=== PATIENT | male | born 1945 | race Two or more races ===

== ENCOUNTER 2019-05-14 10:48 | Observation (INO) | payer MEDICARE ==
--- NOTE | 2019-05-12 15:10 | Diagnostic Imaging Report ---
Frontal and lateral views of the chest. HISTORY: PREOP, L4 surgery COMPARISON: None available. DISCUSSION: Lungs: The lungs are well inflated. No evidence of a consolidative pneumonia or pulmonary alveolar edema. Pleura: No pleural effusion or pneumothorax. Heart and mediastinum: The cardiomediastinal silhouette appears unremarkable. Bones and soft tissues: DISH (Diffuse idiopathic skeletal hyperostosis). IMPRESSION: No acute radiographic abnormality. Signed by: Dr. Ajay Littlejohn D.O., M.M.M. on 05/12/2019 3:06 PM
[2019-05-12 15:21] LABS: BASOPHILS % 0.4 % (0.0-1.0); EOSINOPHILS # (AUTO) 0.2 (0.0-0.4); EOSINOPHILS % 3.7 % (0.0-6.0); HEMATOCRIT 39.3 % (38.2-49.6); HEMOGLOBIN 13.4 g/dL (14.0-18.0); LYMPHOCYTES # (AUTO) 2.1 (1.0-3.2); LYMPHOCYTES % 41.4 % (18.0-39.1); MEAN CORPUSCULAR HEMOGLOBIN 28.6 pg (28-32); MEAN CORPUSCULAR HGB CONC 34.1 g/dL (31-35); MONOCYTES % 19.1 % (4.4-11.3); NEUTROPHILS # (AUTO) 1.8 (2.1-6.9); NEUTROPHILS % 35.2 % (38.7-80.0); PLATELET COUNT 175 x10e3/uL (140-360); RED BLOOD COUNT 4.68 x10e6/uL (4.3-5.7); RED CELL DISTRIBUTION WIDTH 14.5 % (11.7-14.4)
[2019-05-12 15:31] LABS: INR 0.98; PARTIAL THROMBOPLASTIN TIME 25.6 seconds (23.8-35.5); PROTHROMBIN TIME 13.5 seconds (11.9-14.5)
[2019-05-12 15:35] LABS: ANION GAP 15.4 mmol/L (8-16); BLOOD UREA NITROGEN 17 mg/dL (7-26); BUN/CREATININE RATIO 20 (6-25); CALCIUM 9.8 mg/dL (8.4-10.2); CARBON DIOXIDE 26 mmol/L (22-29); CHLORIDE 102 mmol/L (98-107); CREATININE, SERUM 0.87 mg/dL (0.72-1.25); EST GLOMERULAR FILTRATION RATE > 60 ML/MIN (60-); GLUCOSE 101 mg/dL (74-118); POTASSIUM 4.4 mmol/L (3.5-5.1); SODIUM 139 mmol/L (136-145)
[~2019-05-14] VITALS: Ht 172.7 cm; Wt 98.4 kg
[~2019-05-14 10:48] MED LIST: ACETAMINOPHEN 1000 MG/100 ML 100 ML IV ONE; ASPIRIN325 MG PO; BYSTOLIC10 MG PO; CALTRATE 600 W1 EACH PO; GEMFIBROZIL600 MG PO; IBUPROFEN 800MG/ 250ML 250 ML IV ONE; LIDOCAINE HCL (LTA) 4 ML SOLN ONE; LOSARTAN-HCTZ1 EAC1 PO; NIACIN500 M2 PO
[2019-05-14] MEDS ORDERED: CEFAZOLIN SOD 1 GM/NS 50ML 50 ML IV ONE ×2 (11:01→11:27)
--- OUTSIDE RECORDS SUMMARY | 2019-05-14 11:03 | XMS REPORT ---
Author Author [facility] Address Unknown Phone Unavailable Care Team Providers Care Education Adviser Name Role Phone NARDA MALONEY Unavailable Unavailable Problems This patient has no known problems. Allergies, Adverse Reactions, Alerts This patient has no known allergies or adverse reactions. Medications This patient has no known medications. Results Test Description Test Time Test Comments Text Results Atomic Results Result Comments CHEST 2 VIEWS 2019-05-12 15:05:00 [place] [address] Patient Name: JANIE BALLARD MR #: [id number] : 1945 Age/Sex: 73/M Req #: [id number] Adm Physician: Ordered by: NARDA MALONEY MD Report #: [id number] Location: OR Room/Bed: Procedure: [id number] DX/CHEST 2 VIEWS Exam Date: 05/12/19 Exam Time: 1450 REPORT STATUS: Signed Frontal and lateral views of the chest. HISTORY: PREOP, L4 surgery COMPARISON: None available. DISCUSSION: Lungs: The lungs are well inflated. No evidence of a consolidative pneumonia or pulmonary alveolar edema. Pleura: No pleural effusion or pneumothorax. Heart and mediastinum: The cardiomediastinal silhouette appears unremarkable. Bones and soft tissues: DISH (Diffuse idiopathic skeletal hyperostosis). IMPRESSION: No acute radiographic abnormality. Signed by: Dr. Brianda Littlejohn D.O., M.M.M. on 05/12/2019 3:06 PM Dictated By: BRIANDA LITTLEJOHN DO 1506 Transcribed By: BUDDY on 05/12/19 1506 COPY TO: NARDA MALONEY MD
[2019-05-14] MEDS ORDERED: IBUPROFEN 800MG/ 250ML 250 ML IV ONE (13:37)
[2019-05-14] MEDS ORDERED: MAGNESIUM/ALUMINUM/SIMETHICONE 30 ML UDC PO PRN (14:15)
[2019-05-14] MEDS ORDERED: CARISOPRODOL 350 MG TAB PO PRN (14:15)
[2019-05-14] MEDS ORDERED: PROMETHAZINE HCL (IM) 25 MG/ML VIAL IM PRN (14:15)
[2019-05-14] MEDS ORDERED: CEPACOL SORE THROAT LOZENGES PO PRN (14:15)
[2019-05-14] MEDS ORDERED: MORPHINE SULFATE 5 MG/ML VIAL IM PRN (14:15)
[2019-05-14] MEDS ORDERED: ZOLPIDEM TARTRATE 5 MG TAB PO PRN (14:15)
[2019-05-14] MEDS ORDERED: ACETAMINOPHEN 325 MG TAB PO PRN (14:15)
[2019-05-14] MEDS ORDERED: ONDANSETRON HCL INJ 2MG/ML 2ML 2 MG/ML VIAL IV PRN (14:15)
[2019-05-14] MEDS ORDERED: OXYCODONE/ACETAMINOPHEN 5-325 1 EACH TABLET PO PRN (14:15)
[2019-05-14] MEDS ORDERED: ROCURONIUM BROMIDE 10 MG/ML 5ML VIAL ONE (14:20)
[2019-05-14] MEDS ORDERED: SEVOFLURANE INHAL SOLN 250 ML PEN BTL ONE (14:20)
[2019-05-14] MEDS ORDERED: DEXAMETHASONE SOD PHOS INJ 4 MG/ML VIAL ONE (14:20)
[2019-05-14] MEDS ORDERED: ONDANSETRON HCL INJ 2MG/ML 2ML 2 MG/ML VIAL ONE (14:20)
[2019-05-14] MEDS ORDERED: LIDOCAINE HCL 2% LOCAL INJ 5 ML SDV VIAL INJ ONE (14:20)
[2019-05-14] MEDS ORDERED: PROPOFOL IV EMULSION 10 MG/ML 20 ML VIAL ONE (14:20)
[2019-05-14] MEDS ORDERED: GLYCOPYRROLATE INJ 1MG/ 5 ML SYR ONE (14:20)
[2019-05-14] MEDS ORDERED: NEOSTIGMINE 5 MG/5ML SYR ONE (14:20)
[2019-05-14] MEDS ORDERED: FENTANYL CITRATE/PF 100MCG/2 ML INJ ONE ×2 (14:29→18:25)
--- OUTSIDE RECORDS SUMMARY | 2019-05-14 15:37 | XMS REPORT | Clinical Summary ---
Author Author [facility] Address Unknown Phone Unavailable Care Team Providers Care Air Hoist Operator Name Role Phone Ruby Clarke MD PCP Allergies Not on File Medications Not on file Active Problems Not on file Encounters Care Team Description Date Type Specialty Ruby Clarke MD Lumbar radiculopathy 04/09/2019 Hospital Radiology Encounter Ruby Clarke MD Right knee pain, unspecified chronicity; Osteoarthritis of right knee, unspecified osteoarthritis type 04/09/2019 Hospital Radiology Encounter Zachariah Jorgensen MD 04/03/2019 Telephone Urology Ruby Clarke MD Lumbar radiculopathy (Primary Dx); Right knee pain, unspecified chronicity; Osteoarthritis of right knee, unspecified osteoarthritis type 03/31/2019 Transcribe Access Orders after 05/13/2018 Social History Date Tobacco Use Types Packs/Day Years Used Never Assessed Sex Assigned at Date Recorded Not on file Industry Job Start Date Occupation Not on file Not on file Not on file Travel End Travel History Travel Start No recent travel history available. Last Filed Vital Signs Not on file Plan of Treatment Health Maintenance Due Date Last Done Comments COLONOSCOPY SCREENING 1997 SHINGLES VACCINES (#1) 1997 65+ PNEUMOCOCCAL VACCINE 2012 01/27/2016 (2 of 2 - PPSV23) INFLUENZA VACCINE 06/18/2019 Procedures Comments Procedure Name Priority Date/Time Associated Diagnosis MRI KNEE WO CONTRAST Routine 04/09/2019 Right knee pain, RIGHT 6:29 PM CDT unspecified chronicity Osteoarthritis of right knee, unspecified osteoarthritis type MRI LUMBAR SPINE WO Routine 04/09/2019 Lumbar radiculopathy CONTRAST 5:47 PM CDT after 05/13/2018 Results * MRI Knee Right Wo Contrast (04/09/2019 6:29 PM CDT) Specimen Narrative Performed At [facility] EXAMINATION:MRI KNEE WO CONTRAST RIGHT CLINICAL HISTORY:M25.561 Pain in right knee, M17.11 Unilateral primary osteoarthritisright knee, right knee painosteoarthritis TECHNIQUE:Multiplanar multisequence MR imaging of the right knee was performed without contrast. COMPARISON:None. FINDINGS: Cruciate ligaments: Intact. Menisci: There is a complex, predominantly horizontal tear involving the body and posterior horn of the medial meniscus with a flipped meniscal flap located adjacent to the anterior horn of the meniscus. The lateral meniscus is intact. Collateral ligaments: Intact. Bone marrow: There is no acute traumatic or stress related fracture. There are multiple areas of subchondral cyst formation and subchondral edema, secondary to overlying cartilage loss. No suspicious osseous lesion is identified. Articular cartilage: There is high-grade chondral loss at the central aspect of the lateral tibial plateau. The cartilage of the lateral femoral condyle is relatively well preserved. There is high-grade to full-thickness chondral loss involving the majority of the medial femorotibial compartment. There are areas of high-grade chondral loss involving the medial and lateral trochlea. The patellar cartilage is relatively well preserved. Effusion: There is a small knee joint effusion. Extensor mechanism: Intact. Soft tissues: There is soft tissue edema of the anterior knee without an organized collection. There is no soft tissue mass. The visualized musculature is normal in signal and morphology. IMPRESSION: 1. Complex tear of the body and posterior horn of the medial meniscus with a displaced meniscal flap that is flipped anteriorly and located adjacent to the anterior horn of the meniscus. 2. Tricompartmental osteoarthrosis of the knee, worst in the medial femorotibial compartment where it is severe. 3. Small knee joint effusion. [facility]-[id number] Procedure Note Interface, Radiology Results Incoming - 04/09/2019 10:33 PM CDT EXAMINATION: MRI KNEE WO CONTRAST RIGHT CLINICAL HISTORY: M25.561 Pain in right knee, M17.11 Unilateral primary osteoarthritis right knee, right knee pain osteoarthritis TECHNIQUE: Multiplanar multisequence MR imaging of the right knee was performed without contrast. COMPARISON: None. FINDINGS: Cruciate ligaments: Intact. Menisci: There is a complex, predominantly horizontal tear involving the body and posterior horn of the medial meniscus with a flipped meniscal flap located adjacent to the anterior horn of the meniscus. The lateral meniscus is intact. Collateral ligaments: Intact. Bone marrow: There is no acute traumatic or stress related fracture. There are multiple areas of subchondral cyst formation and subchondral edema, secondary to overlying cartilage loss. No suspicious osseous lesion is identified. Articular cartilage: There is high-grade chondral loss at the central aspect of the lateral tibial plateau. The cartilage of the lateral femoral condyle is relatively well preserved. There is high-grade to full-thickness chondral loss involving the majority of the medial femorotibial compartment. There are areas of high-grade chondral loss involving the medial and lateral trochlea. The patellar cartilage is relatively well preserved. Effusion: There is a small knee joint effusion. Extensor mechanism: Intact. Soft tissues: There is soft tissue edema of the anterior knee without an organized collection. There is no soft tissue mass. The visualized musculature is normal in signal and morphology. IMPRESSION: 1. Complex tear of the body and posterior horn of the medial meniscus with a displaced meniscal flap that is flipped anteriorly and located adjacent to the anterior horn of the meniscus. 2. Tricompartmental osteoarthrosis of the knee, worst in the medial femorotibial compartment where it is severe. 3. Small knee joint effusion. [facility]-[id number] Performing Organization Address City/State/Zipcode Phone Number [facility] [address] [place] [address] * MRI Lumbar Spine Wo Contrast (04/09/2019 5:47 PM CDT) Specimen Narrative Performed At EXAMINATION: MRI LUMBAR SPINE WO CONTRAST [facility] CLINICAL HISTORY: M54.16 Radiculopathylumbar region, M54.16 COMPARISON:None TECHNIQUE: Multiplanar multisequence noncontrast enhanced examination was performed of the Lumbar spine. FINDINGS: The distal cord ends at the upper L1 level and is grossly unremarkable. There is inward concavity of multiple endplates. There is no signal to suggest an acute endplate fracture or upper sacral fracture. There are degenerative changes of the sacroiliac joints.There is decreased T2 signal intensity in the lumbar discs greater in the lower lumbar region. L5-S1: There is severe posterior disc space narrowing. There is inward concavity of portions of the endplates with areas of endplate degenerative change. There is dorsal spondylosis indenting the anterior epidural fat with congenital narrowing of the subarachnoid space. There is spondylosis in the region of both S1 nerves. There are facet hypertrophic changes. There is lateral recess stenosis greater on the left. There is severe foramen stenosis. There is moderate narrowing of the subarachnoid space which is congenital in nature. L4-5: There is severe disc space narrowing with surrounding endplate degenerative changes and multiple Schmorl's nodes. There is dorsal spondylosis narrowing the anterior subarachnoid space. There is posterior epidural fat and severe narrowing of the subarachnoid space. There are facet hypertrophic changes and severe foramen stenosis. L3-4:There is greater posterior disc space narrowing with bulge indenting the nerve roots in the subarachnoid space.There is posterior epidural fat and severe narrowing of the subarachnoid space. There are facet hypertrophic changes and moderate foramen stenosis in part congenital in nature. L2-3:There is greater posterior disc space narrowing. There is bulge indenting the subarachnoid space. There is posterior epidural fat and moderate to severe narrowing of the subarachnoid space with crowding of the nerve roots in the subarachnoid space. There are facet hypertrophic changes with mild foramen stenosis in part congenital in nature L1-2:There is greater posterior disc space narrowing. There is bulge and posterior epidural fat with mild narrowing of the AP dimension of the central subarachnoid space.There are facet hypertrophic changes. There is congenital foramen stenosis. The study was not performed for proper imaging of the soft tissue structures in the abdomen and pelvis. IMPRESSION: Multilevel prominent narrowing of the subarachnoid space greatest at the L3-4 level but also prominent at L2-3 down to the L5-S1 disc space level. Foramen stenosis greater in the lower lumbar region. [facility]-[id number] Procedure Note Hm Interface, Radiology Results - 04/09/2019 9:43 PM CDT EXAMINATION: MRI LUMBAR SPINE WO CONTRAST CLINICAL HISTORY: M54.16 Radiculopathy lumbar region, M54.16 COMPARISON: None TECHNIQUE: Multiplanar multisequence noncontrast enhanced examination was performed of the Lumbar spine. FINDINGS: The distal cord ends at the upper L1 level and is grossly unremarkable. There is inward concavity of multiple endplates. There is no signal to suggest an acute endplate fracture or upper sacral fracture. There are degenerative changes of the sacroiliac joints. There is decreased T2 signal intensity in the lumbar discs greater in the lower lumbar region. L5-S1: There is severe posterior disc space narrowing. There is inward concavity of portions of the endplates with areas of endplate degenerative change. There is dorsal spondylosis indenting the anterior epidural fat with congenital narrowing of the subarachnoid space. There is spondylosis in the region of both S1 nerves. There are facet hypertrophic changes. There is lateral recess stenosis greater on the left. There is severe foramen stenosis. There is moderate narrowing of the subarachnoid space which is congenital in nature. L4-5: There is severe disc space narrowing with surrounding endplate degenerative changes and multiple Schmorl's nodes. There is dorsal spondylosis narrowing the anterior subarachnoid space. There is posterior epidural fat and severe narrowing of the subarachnoid space. There are facet hypertrophic changes and severe foramen stenosis. L3-4: There is greater posterior disc space narrowing with bulge indenting the nerve roots in the subarachnoid space. There is posterior epidural fat and severe narrowing of the subarachnoid space. There are facet hypertrophic changes and moderate foramen stenosis in part congenital in nature. L2-3: There is greater posterior disc space narrowing. There is bulge indenting the subarachnoid space. There is posterior epidural fat and moderate to severe narrowing of the subarachnoid space with crowding of the nerve roots in the subarachnoid space. There are facet hypertrophic changes with mild foramen stenosis in part congenital in nature L1-2: There is greater posterior disc space narrowing. There is bulge and posterior epidural fat with mild narrowing of the AP dimension of the central subarachnoid space. There are facet hypertrophic changes. There is congenital foramen stenosis. The study was not performed for proper imaging of the soft tissue structures in the abdomen and pelvis. IMPRESSION: Multilevel prominent narrowing of the subarachnoid space greatest at the L3-4 level but also prominent at L2-3 down to the L5-S1 disc space level. Foramen stenosis greater in the lower lumbar region. [facility] [id number] Performing Organization Address City/State/Zipcode Phone Number [facility] [address] [place] [address] after 05/13/2018 Insurance Type Payer Benefit Subscriber ID Effective Phone Address Plan / Dates Group Commercial AARP AARP xxxxxxxxxxx [id number] SUPPLEMENT resent Medicare MEDICARE MEDICARE xxxxxxxxxxx 2012-P [place], PART A AND resent [place] Advance Directives Patient has advance care planning documents on file. For more information, michael green contact: Gerardo Cordero [address] [place] [address]
[2019-05-14] MEDS ORDERED: MORPHINE SULFATE INJ 4 MG/ML INJ 1ML IM PRN (16:00)
[2019-05-14] MEDS: NIACIN 500 MG TABSR PO SCH (16:06)
[2019-05-14] MEDS: LACTATED RINGER'S 1,000 ML IV SCH ×2 (16:06→22:26)
[2019-05-14 16:07] VITALS: BP 106/69
[2019-05-14 16:16] VITALS: BP 125/71
[2019-05-14] MEDS ORDERED: MIDAZOLAM HCL 2 MG/2 ML VIAL ONE (18:25)
--- NOTE | 2019-05-14 19:00 | NUR ---
Received bedside report from day shift RN. The patient is sitting up on the chair and not in distress. Family members and friends at bedside. Call light within reach, side rails up x2, bed set low and wheels lock. Monitor patient for pain.
[2019-05-14 19:30] VITALS: BP 114/73
--- NOTE | 2019-05-14 21:35 | Operative Report ---
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 POSTOPERATIVE DIAGNOSIS: L3-4 disk herniation and spinal stenosis with right L4 radiculopathy, M48.062, M51.16. PROCEDURES: Right L3-4 laminotomy, medial facetectomy, and microsurgical diskectomy, [address]. ANESTHESIA: General. INDICATIONS: The patient is a 73-year-old man, who presents with an L4 radiculopathy due to a large central broad-based disk herniation, which superimposed on facet and ligamentous hypertrophy produces severe right L4 lateral recess stenosis. The patient was in the operating room for microsurgical decompression. PROCEDURE IN DETAIL: After induction of general anesthesia, the patient was placed on the operating table in prone position over Brian frame. Lumbar region was prepped and draped in sterile fashion. A preoperative x-ray was obtained. A small midline incision was created. Lumbar fascia was opened in the right of midline and subperiosteal dissection was carried out to expose the right side of the L3 and L4 lamina and the medial aspect of the hypertrophic facet joint. A 2nd x-ray compared correct localization. The operating microscope was brought in. A high-speed drill equipped with marisol bur was used to drill the inferior aspect of the lamina of L3, the medial rim of the hypertrophic L3-4 facet joint and superior aspect of the lamina of L4. The markedly hypertrophic ligamentum flavum was resected and the dural sac and right L4 nerve roots were exposed. A ball probe was then passed ventral to the dural sac and used to retrieve the edge of the extruded disk material, which was carefully delivered out. The opening into the annulus of the disk was enlarged with an #11 blade and the loose and degenerated contents of the L3-4 disk were thoroughly evacuated with curettes and pituitary rongeurs. The subligamentous portion of the disk herniation was resected with the up-angled pituitary. Excellent decompression was thus achieved. By the end of the procedure, a ball probe could be passed in the ventral epidural space from right to left without encountering any resistance. Meticulous hemostasis was secured. Retractor was removed. The lumbar fascia was closed with 0-Vicryl suture, subcutaneous layer was closed with 2-0 Vicryl sutures, the skin was closed with 3-0 Monocryl sutures in subcuticular fashion. Steri-Strips and dressing were applied. The patient was awakened, extubated, and taken to postanesthesia care unit in stable condition. No intraoperative complications were encountered. Estimated blood losswas 10 mL. Klever López MD PP/[facility] /[id number]
[2019-05-15] VITALS: BP 104/61
[2019-05-15] MEDS: LACTATED RINGER'S 1,000 ML IV SCH (05:40)
--- NOTE | 2019-05-15 06:45 | NUR ---
walking rounds made with night filler nurse, patient resting comfortably in bed and in no distress. call cordero within reach and bed in lowest position.
[2019-05-15] MEDS ORDERED: NORCO 7.5-3251 EACH PO (07:55)
[2019-05-15 08:00] VITALS: BP 124/79
[2019-05-15] MEDS: NIACIN 500 MG TABSR PO SCH (08:03)
[2019-05-15 08:32] VITALS: BP 124/79
[2019-05-15] MEDS ORDERED: NEBIVOLOL 10 MG TAB PO SCH (09:00)
[2019-05-15] MEDS ORDERED: GEMFIBROZIL 600 MG TAB PO SCH (09:00)
--- NOTE | 2019-05-15 09:40 | NUR ---
patient alert and oriented with family at bedside. discharge instructions given at this time, patient verbalized understanding. IV discontinued, catheter in tact and small dressing applied. Patient refused wheelchair assistance and will be escorted out to personal auto for family to drive home.
== END 2019-05-15 09:45 | disposition home or self-care (01) ==
LOC: OR 10:48 → PACU V 14:07 → IMCU 15:41
PROVIDERS: ADMIT Neurological Surgery; ATTEND Neurological Surgery
DX: M48.062 Spinal stenosis, lumbar region with neurogenic claudication (principal); M51.16 Intervertebral disc disorders with radiculopathy, lumbar region; I10 Essential (primary) hypertension; E78.5 Hyperlipidemia, unspecified; E66.9 Obesity, unspecified; Z68.33 Body mass index [BMI] 33.0-33.9, adult; M19.90 Unspecified osteoarthritis, unspecified site
CPT/HCPCS: 36415; 63047; 71046; 72020; 80048; 85025; 85610; 85730; 86850; 86900; 88304; 93005; G0378 ×2; J0131; J0690; J1100; J2001; J2250; J2405; J2704; J3490; J7121; J3010